=== PATIENT | male | born 1985 | race Caucasian/White ===

== ENCOUNTER 2022-08-14 14:25 | Outpatient (CLI) | payer OTHER, SELFPAY ==
[2022-08-14 16:14] LABS: Transferrin 282 mg/dL (206-381)
[2022-08-14 17:13] LABS: Iron 60 ug/dL (49-181); Percent Iron Saturation 15 % (20-50)
[2022-08-14 17:14] LABS: Alanine Aminotransferase 206 U/L (6-50); Albumin Level 3.9 g/dL (3.5-5.1); Alkaline Phosphatase 120 U/L (38-126); Anion Gap 10 mmol/L (8-16); Aspartate Amino Transferase 187 U/L (17-59); Bilirubin Indirect 0.6 mg/dL (0-1.1); Blood Urea Nitrogen 14 mg/dL (9-20); Calcium 8.9 mg/dL (8.4-10.2); Carbon Dioxide 23 mmol/L (22-30); Chloride 102 mmol/L (98-107); Estimated Glomerular Filt Rate > 60; Glucose 103 mg/dL (65-110); Potassium 5.3 mmol/L (3.4-5.0); Sodium 135 mmol/L (137-145)
== END 2022-08-14 14:26 | disposition home or self-care (01) ==
LOC: ANHLAB 14:28
PROVIDERS: Visit Provider Internal Medicine Gastroenterology
DX: B19.20 Unspecified viral hepatitis C without hepatic coma (principal)
CPT/HCPCS: 36415; 80053; 82248; 82728; 83540; 83550; 84466

== ENCOUNTER 2022-10-26 14:16 | Outpatient (CLI) | payer OTHER, SELFPAY ==
[2022-10-26 15:26] LABS: Basophils Percent Auto 0.6 % (0.2-1.2); Eosinophils Absolute Auto 0.2 K/mm3 (0-0.3); Eosinophils Percent Auto 2.7 % (0-4.4); Hematocrit 38.5 % (42.0-52.0); Hemoglobin 11.8 g/dL (14.0-18.0); Immature Granulocyte Absolute 0.02 K/mm3 (0.00-0.031); Immature Granulocyte Percent A 0.3 % (0-0.5); Lymphocytes Absolute Auto 1.25 K/mm3 (0.9-3.2); Lymphocytes Percent Auto 18.1 % (18.3-44.2); Mean Corpuscular HGB Conc 30.6 g/dl (32-36); Mean Corpuscular Hemoglobin 25.9 pg (26-34); Mean Corpuscular Volume 84.6 fl (80-100); Mean Platelet Volume 9.4 fl (7.4-10.4); Monocytes Absolute Auto 0.5 K/mm3 (0.1-0.6); Monocytes Percent Auto 6.9 % (2.6-8.5); Neutrophils Absolute Auto 4.9 K/mm3 (1.3-6.7); Neutrophils Percent Auto 71.4 % (45.5-73.1); Platelet Count Result 336 k/mm3 (150-375); Red Blood Count 4.55 M/mm3 (4.6-6.20); Red Cell Distribution Width 13.5 % (11.5-14.5); White Blood Count 6.9 K/mm3 (4.5-10.0)
[2022-10-26 15:37] LABS: Prothrombin Time 13.8 Seconds (11.1-14.7)
[2022-10-26 15:38] LABS: Partial Thromboplastin Time 31.6 SECONDS (22.3-36.8)
[2022-10-26 15:41] LABS: Iron 40 ug/dL (49-181)
[2022-10-26 15:43] LABS: Alanine Aminotransferase 186 U/L (6-50); Albumin Level 3.7 g/dL (3.5-5.1); Alkaline Phosphatase 121 U/L (38-126); Anion Gap 2 mmol/L (8-16); Aspartate Amino Transferase 180 U/L (17-59); Bilirubin Indirect 0.2 mg/dL (0-1.1); Bilirubin,Total 0.3 mg/dL (0.2-1.3); Blood Urea Nitrogen 5 mg/dL (9-20); Calcium 8.7 mg/dL (8.4-10.2); Carbon Dioxide 32 mmol/L (22-30); Chloride 103 mmol/L (98-107); Estimated Glomerular Filt Rate > 60; Glucose 108 mg/dL (65-110); Potassium 4.5 mmol/L (3.4-5.0); Sodium 137 mmol/L (137-145)
[2022-10-26 15:51] LABS: Percent Iron Saturation 11 % (20-50)
[2022-10-26 15:53] LABS: Transferrin 215 mg/dL (206-381)
[2022-10-26 16:26] LABS: Hepatitis B Surface Antigen Negative (Negative)
[2022-10-26 16:32] LABS: HAV RESULT Negative (Negative); Hepatitis B Core IgM Result Negative (Negative)
[2022-10-26 16:54] LABS: Hepatitis C Virus Antibody Reactive (Negative)
[2022-11-01 14:12] LABS: Hepatitis C RNA, Quant PCR 5320000 IU/mL
[2022-11-02 08:13] LABS: HCV Genotype, LiPA 1a
[2022-11-06 15:41] LABS: ALT 142 U/L (9-46); Alpha-2-Macroglobulin 283 mg/dL (106-279); Apolipoprotein A1 137 mg/dL (94-176); Fibrosis Score 0.32; Fibrosis Stage F1-F2; GGT 49 U/L (3-90); Haptoglobin 95 mg/dL (43-212); Necroinflammat Act Grade A3; Total Bilirubin 0.3 mg/dL (0.2-1.2)
== END 2022-10-26 14:17 | disposition home or self-care (01) ==
PROVIDERS: Visit Provider Internal Medicine Gastroenterology
DX: B19.20 Unspecified viral hepatitis C without hepatic coma (principal)
CPT/HCPCS: 36415; 80053; 80074; 81596; 82728; 83540; 83550; 84466; 85025; 85610; 85730; 86803; 87522

== ENCOUNTER 2023-06-23 17:27 | Observation (INO) | payer OTHER, SELFPAY ==
[2023-06-23] VITALS (20 sets, daily range): BP systolic 112–165; BP diastolic 70–88; PULSE 60–86; RESP 13–20; TEMP 36.2–36.6; O2SAT 96–100
--- NOTE | ~2023-06-23 | CT_ITS ---
CT scan of the right hand CLINICAL HISTORY: infection, evaluate for abscess TECHNIQUE: Following intravenous administration of 100 cc of Omnipaque 350 contrast material, axial i maging of the right hand was performed. Sagittal and coronal reformatted images were constructed. Dos e reduction technique was used on this scan by utilizing automated exposure control and iterative rec onstruction technique. The dose-length product (DLP) was 566.42 mGy-cm. FINDINGS: Osseous structures are intact. No fracture or dislocation seen. Joint spaces are preserved without degenerative or erosive change. No distinct joint effusion evident. There is marked subcutaneous soft tissue edema hand, especially over the dorsum of the hand. No defin ite mature, peripherally enhancing abscess evident. Soft tissue edema extending circumferentially abo ut the wrist. IMPRESSION: Marked soft tissue edema, especially over the dorsum of the hand and circumferentially about the wris t, without definite abscess. Reviewed, dictated and finalized at [facility]. AL TECHNICIAN IMPRESSION: Marked soft tissue edema, especially over the dorsum of the hand and circumfere ntially about the wrist, without definite abscess.
--- NOTE | ~2023-06-23 | US_ITS ---
EXAMINATION: US renal BI DATE: 06/24/2023 15:56 INDICATION: Acute kidney injury. TECHNIQUE: Multiple ultrasound grayscale images of the kidneys were obtained. COMPARISON: CT abdomen 03/22/2008 FINDINGS: The right kidney measures 10.4 x 5.3 x 5.8 cm. The left kidney measures 12.6 x 5.3 x 5.4 cm. The kidn eys demonstrate normal parenchymal echogenicity. There is no hydronephrosis. The bladder is normal. IMPRESSION: 1. Normal kidneys. No hydronephrosis. Reviewed, dictated and finalized at location [facility]. [facility]
--- NOTE | 2023-06-23 18:11 | ED.SKABFB ---
HPI - Skin/Abscess/Foreign Bdy General Chief complaint: Skin/Abscess/Foreign Body Stated complaint: Right hand swelling Time Seen by Provider: 06/23/23 17:56 History of Present Illness HPI narrative: Patient is a 38-year-old male presenting with right hand swelling. States that he is an IV drug user and he recently used a dirty needle in his right hand. He has had right hand and arm swelling for the last few days. He went to urgent care 2 days ago and was started on clindamycin. States that the swelling has actually gone down a little today but his hand is still very swollen and painful. No fevers, nausea vomiting, or other systemic symptoms. Has widespread chronic sores related to prior IV drug use. Related Data Home Medications Medication Instructions Recorded Confirmed gabapentin 600 mg tablet 600 mg PO TID 06/23/23 06/23/23 methadone 40 mg soluble tablet 90 mg PO DAILY 06/23/23 06/23/23 Allergies Allergy/AdvReac Type Severity Reaction Status Date / Time sulfamethoxazole Allergy Mild Swelling Verified 06/23/23 17:51 trimethoprim Allergy Mild Swelling Verified 06/23/23 17:51 Review of Systems Review of Systems: All systems reviewed & are unremarkable except as noted in HPI and below PMFSH Past Medical History Medical History Hepatitis C Intravenous drug abuse Fentanyl Tobacco use Surgical History Surgical History (Updated 06/23/23 @ 23:19 by Zaria Dunbar PA-C) History of appendectomy Family History Family History Sibling Family history of premature coronary heart disease Mother Hypertension Grandparent Asthma Father Family history of chronic obstructive pulmonary disease Other Cerebrovascular accident Family history of cardiovascular disease Social History Social History (Updated 06/23/23 @ 23:20 by Zaria Dunbar PA-C) Social History: Surrogate medical decision maker: Winifred Lopez, mother. Code status: Full code. Smoking packs per day: 1 Smoking cigarettes per day: 20.0 Years smoked: 20 Smoking pack-years: 20.00 Smoking status: Heavy tobacco smoker Tobacco type: cigarettes Second hand tobacco smoke exposure: Yes Alcohol intake: never Substance use: current Substance use type: IV drugs Other substance usage details: Fentanyl Last use: 06/21/2023 Do You Feel Safe in your Home?: Yes Lack of Transportation: No Lack of Food: Never True Current Housing: I Have Housing Concerned About Future Housing: No Difficulty Paying Gas/Electric Bills: No Difficulty Paying for Meds: No Currently Unemployed: No Education: High School Diploma/GED Difficulty w/ Childcare or Family Care: No Spiritual care concerns: No Exam Narrative: GENERAL: Nontoxic, no acute distress, pleasant and cooperative HEAD: Normocephalic, atraumatic. EYES: PERRLA and EOMI. ENT: Grossly unremarkable NECK: Supple. CHEST: Clear to auscultation. No respiratory distress. HEART: Regular rate and rhythm ABDOMEN: Soft, nontender, nondistended EXTREMITIES: R hand is swollen and red, mildly tender with palpation, redness extends up forearm stopping before elbow; numerous chronic appearing sores on both arms and legs from prior sites of injection; radial pulses 2+, brisk cap refill SKIN: Warm, dry, as above NEURO: No focal deficits. Alert and oriented x3. PSYCH: Normal mood and affect. Course Vital Signs Vital signs: Vital Signs Temperature 97.8 F 06/23/23 17:31 Pulse Rate 82 06/23/23 17:31 Respiratory Rate 18 06/23/23 17:31 Blood Pressure 165/84 H 06/23/23 17:31 Pulse Oximetry 100 06/23/23 17:31 Oxygen Delivery Room Air 06/23/23 17:31 Temperature 97.3 F L 06/24/23 14:00 Pulse Rate 77 06/24/23 14:00 Respiratory Rate 18 06/24/23 14:00 Blood Pressure 116/89 06/24/23 14:00 Pulse Oximetry 90 06/24/23 14:00 Oxygen Delivery Room Air 06/24/23 10:42
[2023-06-23 18:55] LABS: Basophils Percent Auto 0.2 % (0.2-1.2); Eosinophils Percent Auto 0.2 % (0-4.4); Hematocrit 34.1 % (42.0-52.0); Hemoglobin 10.7 g/dL (14.0-18.0); Immature Granulocyte Absolute 0.08 K/mm3 (0.00-0.031); Immature Granulocyte Percent A 0.6 % (0-0.5); Lymphocytes Absolute Auto 1.43 K/mm3 (0.9-3.2); Lymphocytes Percent Auto 10.5 % (18.3-44.2); Mean Corpuscular HGB Conc 31.4 g/dl (32-36); Mean Corpuscular Hemoglobin 25.1 pg (26-34); Mean Corpuscular Volume 79.9 fl (80-100); Mean Platelet Volume 9.6 fl (7.4-10.4); Monocytes Absolute Auto 0.7 K/mm3 (0.1-0.6); Monocytes Percent Auto 5.3 % (2.6-8.5); Neutrophils Absolute Auto 11.3 K/mm3 (1.3-6.7); Neutrophils Percent Auto 83.2 % (45.5-73.1); Platelet Count Result 329 k/mm3 (150-375); Red Blood Count 4.27 M/mm3 (4.6-6.20); Red Cell Distribution Width 14.1 % (11.5-14.5); White Blood Count 13.6 K/mm3 (4.5-10.0)
[2023-06-23] MEDS: KETOROLAC 30 MG/ML VIAL (*BKC) IV PUSH (19:05)
[2023-06-23] MEDS: HYDROmorphone HCL INJ (*CRX) 1 MG/ML SYR IV PUSH ×2 (19:05→23:16)
[2023-06-23 19:09] LABS: Lactic Acid Reflex 1.3 mmol/L (0.7-2.0)
[2023-06-23 19:15] LABS: Alanine Aminotransferase 124 U/L (6-50); Albumin Level 3.6 g/dL (3.5-5.1); Alkaline Phosphatase 131 U/L (38-126); Anion Gap 6 mmol/L (8-16); Aspartate Amino Transferase 103 U/L (17-59); Bilirubin,Total 0.4 mg/dL (0.2-1.3); Blood Urea Nitrogen 42 mg/dL (9-20); Calcium 8.9 mg/dL (8.4-10.2); Carbon Dioxide 29 mmol/L (22-30); Chloride 97 mmol/L (98-107); Estimated CRCL calculation 36 ml/min; Estimated Glomerular Filt Rate 30; Glucose 93 mg/dL (65-110); Potassium 3.8 mmol/L (3.4-5.0); Sodium 132 mmol/L (137-145)
[2023-06-23 19:43] LABS: Erythrocyte Sedimentation Rate 81 mm/hr (0-20)
[2023-06-23] MEDS: SODIUM CHLORIDE 0.9% IV 1,000 ML 999 ML IV CONT ×3 (19:52→21:18)
[2023-06-23] MEDS: VANCOMYCIN 1,250 MG/NS 250 ML 1,250 MG/250 ML BAG 166.67 MG IVPB (19:58)
[2023-06-23 20:06] LABS: CRP 17.4 mg/dL (<1.0)
[2023-06-23 21:04] LABS: Creatine Kinase 71 U/L (55-170)
--- NOTE | 2023-06-23 23:02 | PM.IMHP ---
H&P: HPI History of Present Illness Date/Time: 06/23/23 21:30 Chief Complaint: Right arm pain and swelling. Narrative: This is a pleasant 38-year-old male smoker with hepatitis C and IV fentanyl abuse who presented to the emergency department via private vehicle for evaluation of right arm pain and swelling. The patient provides the following history. He injected intravenously and skin pops and he reports several, chronic ulcerated wounds on both his upper and lower extremities. Three days ago he reused 1 of his needles and within about a day and half he noticed redness and swelling developing at the site. He was seen at urgent care where he was prescribed clindamycin and despite being compliant with the antibiotics the area has continued to progress quite significantly. He describes a tight, throbbing pain in the forearm and down into the hand. He has mild tingling in his fingertips but his sensation and dexterity are intact. He reports sweats and nausea. No known fever. Denies known history of MRSA or other multidrug resistant organisms. He has not noticed a change in urine output. No known history of hypertension, anemia, or kidney disease. He takes 1 ibuprofen a day, never more. He has been eating okay, admits he does not drink as much water as he probably should. He has not noticed a decrease in urine output. Of note, the patient reports that he is on methadone, 90 mg daily. In the ED: He was afebrile on arrival. Vital signs have been stable. Labs were significant for a WBC count 13.6, hemoglobin 10.7, MCV 79.9, ESR 81, sodium 132, chloride 97, BUN 42, creatinine 2.40, AST 103, ALT 124, alkaline phosphatase 131, total CK 71, CRP 17.4. CT of the hand showed marked soft tissue edema especially over the dorsum of the hand and circumferentially about the wrist without definite abscess. Ultrasound of the forearm was done at bedside by attending ED physician, Dr. Chun, and he did not see any evidence of abscess or gas. In fact on repeat exam the patient's arm looked less swollen and less red compared to earlier examination. Review of Systems Review of Systems: Twelve systems were reviewed and are negative except for as per HPI. [facility] Past Medical History Medical History Hepatitis C Intravenous drug abuse Fentanyl Tobacco use Surgical History Surgical History (Updated 06/23/23 @ 23:19 by Zaria Dunbar PA-C) History of appendectomy Family History Family History Sibling Family history of premature coronary heart disease Mother Hypertension Grandparent Asthma Father Family history of chronic obstructive pulmonary disease Other Cerebrovascular accident Family history of cardiovascular disease Social History Social History (Updated 06/23/23 @ 23:20 by Zaria Dunbar PA-C) Social History: Surrogate medical decision maker: Winifred Lopez, mother. Code status: Full code. Smoking packs per day: 1 Smoking cigarettes per day: 20.0 Years smoked: 20 Smoking pack-years: 20.00 Smoking status: Heavy tobacco smoker Tobacco type: cigarettes Second hand tobacco smoke exposure: Yes Alcohol intake: never Substance use: current Substance use type: IV drugs Other substance usage details: Fentanyl Last use: 06/21/2023 Do You Feel Safe in your Home?: Yes Lack of Transportation: No Lack of Food: Never True Current Housing: I Have Housing Concerned About Future Housing: No Difficulty Paying Gas/Electric Bills: No Difficulty Paying for Meds: No Currently Unemployed: No Education: High School Diploma/GED Difficulty w/ Childcare or Family Care: No Spiritual care concerns: No Meds Home Medications and Allergies Home Medications Medication Instructions Recorded Confirmed Type gabapentin 600 mg tablet 600 mg PO TID 06/23/23 06/23/23 History methadone 40 mg soluble tablet 90 mg PO DAILY 06/23/23 06/23/23 History
--- NOTE | 2023-06-23 23:05 | ADMGEN ---
This patient, Schuyler Lopez, was admitted to Medical Room 342-01. Patient/family oriented to hospital policies and general routines including ID bracelet, bed and alarms, visiting hours, pain management, procedures, bathroom and other care routines, personal items, smoking policy, room service/diet, and visiting hours. Information on how to activate the Rapid Response Team has been discussed. Patient/Family are encouraged to report perceived risks to care and to ask questions if they do not understand what they are told or what they should do.
[2023-06-23] MEDS: PIPERACILLN/TAZ 3.375GM/NS50ML 3.375 GM/50 ML BAG IVPB (23:13)
[2023-06-24 00:18] LABS: Anion Gap 6 mmol/L (8-16); Blood Urea Nitrogen 38 mg/dL (9-20); Calcium 8.2 mg/dL (8.4-10.2); Carbon Dioxide 28 mmol/L (22-30); Chloride 101 mmol/L (98-107); Creatine Kinase 55 U/L (55-170); Estimated CRCL calculation 39 ml/min; Estimated Glomerular Filt Rate 33; Glucose 95 mg/dL (65-110); Iron 18 ug/dL (49-181); Potassium 3.6 mmol/L (3.4-5.0); Sodium 135 mmol/L (137-145)
[2023-06-24 00:29] LABS: Percent Iron Saturation 7 % (20-50)
[2023-06-24] MEDS: LACTATED RINGERS 1,000 ML 100 ML IV CONT ×2 (00:53→13:04)
[2023-06-24 00:57] LABS: Appearance Urine Cloudy (Clear); Bacteria Urine None Seen /hpf; Bilirubin Urine Negative (Negative); Blood Urine 3+ (Negative); Color Urine Yellow (Yellow); Glucose Urine UA Negative (Negative); Ketones Urine Negative (Negative); Leukocyte Esterase Ur Negative LEU/UL (Negative); Nitrate Urine Negative (Negative); Protein Urine 2+ mg/dL (Negative); RBC Urine >100 /hpf (0-2); Specific Grav Ur 1.022 (1.001-1.035); Squamous Epithelial Cell Urine Occasional /hpf (Few); Urobilinogen Urine 0.2 mg/dL (<2.0); pH Urine 5.5 (5.0-9.0)
[2023-06-24 01:12] LABS: Add Urine Microscopic? YES
[2023-06-24 01:28] LABS: Folic Acid > 20.0 ng/mL (2.76->20)
[2023-06-24 02:36] LABS: Hepatitis B Surface Antigen Negative (Negative)
[2023-06-24 02:40] LABS: HAV RESULT Negative (Negative); Hepatitis B Core IgM Result Negative (Negative)
[2023-06-24 02:53] LABS: Hepatitis C Virus Antibody Reactive (Negative)
[2023-06-24] MEDS: PIPERACILLIN/TAZ 2.25G/NS 50ML 2.25 GM/50 ML BAG IVPB (05:42)
[2023-06-24] MEDS: MORPHINE SULFATE (*CRX) 2 MG/ML INJ 4 MG IV PUSH ×2 (05:42→10:57)
[2023-06-24] MEDS: LORazepam INJ (*CRX) 2 MG/ML VIAL 1 MG IV PUSH ×2 (05:51→13:04)
[2023-06-24 05:54] LABS: Hematocrit 34.2 % (42.0-52.0); Hemoglobin 10.3 g/dL (14.0-18.0); Mean Corpuscular HGB Conc 30.1 g/dl (32-36); Mean Corpuscular Hemoglobin 25.1 pg (26-34); Mean Corpuscular Volume 83.2 fl (80-100); Mean Platelet Volume 9.5 fl (7.4-10.4); Platelet Count Result 322 k/mm3 (150-375); Red Blood Count 4.11 M/mm3 (4.6-6.20); Red Cell Distribution Width 14.1 % (11.5-14.5); White Blood Count 11.3 K/mm3 (4.5-10.0)
[2023-06-24 06:00] VITALS: BP 153/96; PULSE 74; RESP 21; TEMP 37.3; O2SAT 100; BMI 27.5
[2023-06-24 06:04] LABS: Alanine Aminotransferase 103 U/L (6-50); Albumin Level 2.9 g/dL (3.5-5.1); Alkaline Phosphatase 118 U/L (38-126); Anion Gap 6 mmol/L (8-16); Aspartate Amino Transferase 94 U/L (17-59); Bilirubin,Total 0.3 mg/dL (0.2-1.3); Blood Urea Nitrogen 33 mg/dL (9-20); Calcium 8.2 mg/dL (8.4-10.2); Carbon Dioxide 25 mmol/L (22-30); Chloride 103 mmol/L (98-107); Estimated CRCL calculation 45 ml/min; Estimated Glomerular Filt Rate 39; Glucose 91 mg/dL (65-110); Potassium 3.7 mmol/L (3.4-5.0); Sodium 134 mmol/L (137-145)
[2023-06-24] MEDS: GABAPENTIN 300 MG CAPSULE 600 MG PO ×2 (08:35→13:03)
--- NOTE | 2023-06-24 09:01 | PM.IMPN ---
Progress Note: A&P Assessment and Plan (1) Cellulitis of right arm: Code(s): L03.113 - Cellulitis of right upper limb Status: Acute (2) Acute kidney injury: Code(s): N17.9 - Acute kidney failure, unspecified Status: Acute (3) Multiple wounds of skin: Code(s): T14.8XXA - Other injury of unspecified body region, initial encounter Status: Acute (4) Microcytic anemia: Code(s): D50.9 - Iron deficiency anemia, unspecified Status: Acute (5) Intravenous drug abuse: Code(s): F19.10 - Other psychoactive substance abuse, uncomplicated Status: Acute (6) Hepatitis C: Code(s): B19.20 - Unspecified viral hepatitis C without hepatic coma Status: Acute (7) Tobacco use: Code(s): Z72.0 - Tobacco use Status: Acute Plan The patient presented to the emergency department for evaluation of right arm pain and swelling after injecting IV drugs several days ago. He has significant swelling and cellulitis in that right arm with lymphangitic streaking and lymphadenopathy in the right axilla. A CT scan of the hand was done in the ED without definitive abscess however the infection extends well beyond the hand and wrist. BEDSIDE ULTRASOUND IN THE ED SHOWED cobblestoning indicative of edema and cellulitis. No definitive abscess or gas was noted. The patient encouraged to elevate the affected extremity frequently. CONTINUE TO measure the extremity each shift and do neurovascular checks. Analgesics available as needed. Continue broad-spectrum antibiotics including vancomycin and Zosyn for now. Blood cultures have been obtained and are pending. Regarding the acute kidney injury, CREATININE ON ADMISSION WAS 2.4 BASELINE CREATININE BACK IN 10/2022 WAS 0.5. CONTINUES TO IMPROVE WITH IV HYDRATION DOWN TO 1.9 THIS A.M.. WILL AVOID COMBINATION OF VANCOMYCIN AND ZOSYN IN THIS SETTING AND WILL SWITCH ZOSYN TO CEFTRIAXONE. He has a mild microcytic anemia thus will check iron studies as well as B12 and folates. TOBACCO ABUSE Wound nurse consulted for recommendations regarding his numerous wounds. DVT PROPHYLAXIS START LOVENOX Subjective Date/time seen: 06/24/23 09:01 Interval history: Swelling is improving he states. Remains afebrile. He states he will be going home tomorrow Review of Systems Review of Systems: All systems reviewed & are unremarkable except as noted in HPI and below Exam Narrative: General: Nontoxic-appearing male in the semi-Garzon position in bed. HEENT: Normocephalic, atraumatic. PERRL, EOMI. Sclera anicteric. Tacky mucous membranes. Neck: Supple. Respiratory: Lungs are clear to auscultation bilaterally. Cardiovascular: Regular rate and rhythm with S1-S2. No obvious murmur. Gastrointestinal: Abdomen is soft, nontender, and nondistended with positive bowel sounds. Skin: Warm and dry. Multiple tattoos. Several scars and ulcerations in various stages of healing on all of the extremities. The right upper extremity from the dorsum of the hand to the elbow are markedly edematous, erythematous, warm, and tender to touch. Some erythema and mild swelling extends above the elbow. There is tender lymphadenopathy in the right axilla. Scattered ulcers noted on the forearm, some with black eschars. No obvious area of fluctuance or crepitus. Capillary refill is normal. Sensation is intact in the fingers. He is unable to make a tight fist due to the swelling. Extremities: No cyanosis or clubbing. Edema as above. Peripheral pulses intact. Neurological: Alert. Cranial nerves 2-12 are grossly intact. No gross focal deficits to casual conversation. Psychiatric: Pleasant and cooperative with appropriate mood and affect. Objective Data Vital Signs Vital Signs: Vital Signs - 24 hr 06/23/23 17:31 06/23/23 17:52 06/23/23 19:54 Temperature 97.8 F Pulse Rate 82 80 79 Respiratory Rate 18 20 17 Blood Pressure 165/84 H 112/88 120/78 Pulse Oximetry 100 100 96 Oxygen
[2023-06-24 10:42] VITALS: O2SAT 100
[2023-06-24] MEDS: cefTRIAXone 2 GM/NS 100 ML 2 GM/100 ML BAG IVPB (10:44)
[2023-06-24] MEDS: ENOXAPARIN 40 MG/0.4 ML SYRINGE SUB-Q (10:44)
[2023-06-24] MEDS: HYDROcodone/acetaminophen (*CRX) 5-325 MG TABLET 1 TAB PO (13:03)
[2023-06-24 14:00] VITALS: BP 116/89; PULSE 77; RESP 18; TEMP 36.3; O2SAT 90
--- NOTE | 2023-06-24 19:26 | PC.NURSE ---
Around 1800, pt expressed concerns that he wanted to leave AMA. Spoke with Dr. Padron about pt seeming weak and unable to dial his mother's number, needed assistance by this RN. Telephone orders for 0.5 mg ativan received to try to calm pt to stay for longer in order to receive IV fluids and antibiotics. Pt refusing ativan and demanding methadone in order to stay. Spoke with pharmacy about getting a one time dose of methadone now and to continue tomorrow afternoon with subsequent doses. Orders obtained for methadone. Pt states that he is going to leave anyway and would like to sign AMA papers. Pt signed AMA paperwork and educated about the risks of leaving AMA without receiving the appropriate amount of antibiotics for his infection. Pt states he understands the risks. Pt's mother arrived around 1900 and proceeded to have a verbal altercation with the pt. Security called to assist. Pt's mother left shortly after, and the pt left escorted by security.
--- NOTE | 2023-06-25 16:25 | PM.DS ---
DS: Admitting Diagnosis Discharge Date 06/24/23 Admitting Diagnosis Upper extremity cellulitis DS: Discharge Diagnosis Discharge Diagnosis (1) Cellulitis of right arm: Code(s): L03.113 - Cellulitis of right upper limb Status: Acute (2) Acute kidney injury: Code(s): N17.9 - Acute kidney failure, unspecified Status: Acute (3) Multiple wounds of skin: Code(s): T14.8XXA - Other injury of unspecified body region, initial encounter Status: Acute (4) Microcytic anemia: Code(s): D50.9 - Iron deficiency anemia, unspecified Status: Acute (5) Intravenous drug abuse: Code(s): F19.10 - Other psychoactive substance abuse, uncomplicated Status: Acute (6) Hepatitis C: Code(s): B19.20 - Unspecified viral hepatitis C without hepatic coma Status: Acute (7) Tobacco use: Code(s): Z72.0 - Tobacco use Status: Acute DS: Summary Hospital Course Hospital Course: The patient presented to the emergency department for evaluation of right arm pain and swelling after injecting IV drugs several days ago.? He has significant swelling and cellulitis in that right arm with lymphangitic streaking and lymphadenopathy in the right axilla. A CT scan of the hand was done in the ED without definitive abscess however the infection extends well beyond the hand and wrist.? BEDSIDE ULTRASOUND IN THE ED SHOWED cobblestoning indicative of edema and cellulitis. No definitive abscess or gas was noted. The patient encouraged to elevate the affected extremity frequently.? CONTINUE TO measure the extremity each shift and do neurovascular checks. Analgesics available as needed. Continue broad-spectrum antibiotics including vancomycin and Zosyn for now. Blood cultures have been obtained and remained negative. CREATININE ON ADMISSION WAS 2.4 BASELINE CREATININE BACK IN 10/2022 WAS 0.5.? CONTINUES TO IMPROVE WITH IV HYDRATION DOWN TO 1.9 THIS A.M..? To aVOID COMBINATION OF VANCOMYCIN AND ZOSYN Zosyn was switched TO CEFTRIAXONE.? He has a mild microcytic anemia thus will check iron studies as well as B12 and folates.? TOBACCO ABUSE ?Wound nurse consulted for recommendations regarding his numerous wounds. DVT PROPHYLAXIS START LOVENOX Opiate use disorder on methadone Subsequently by the end of the day he refused to get continue treatment in the hospital and left against medical advice Time Spent with Patient Time attestation: Total time spent providing and/or coordinating discharge services: With 30 minutes Exam Narrative: General: Nontoxic-appearing male in the semi-Garzon position in bed. HEENT: Normocephalic, atraumatic. PERRL, EOMI. Sclera anicteric. Tacky mucous membranes. Neck: Supple. Respiratory: Lungs are clear to auscultation bilaterally. Cardiovascular: Regular rate and rhythm with S1-S2. No obvious murmur. Gastrointestinal: Abdomen is soft, nontender, and nondistended with positive bowel sounds. Skin: Warm and dry. Multiple tattoos. Several scars and ulcerations in various stages of healing on all of the extremities. The right upper extremity from the dorsum of the hand to the elbow are markedly edematous, erythematous, warm, and tender to touch. Some erythema and mild swelling extends above the elbow. There is tender lymphadenopathy in the right axilla. Scattered ulcers noted on the forearm, some with black eschars. No obvious area of fluctuance or crepitus. Capillary refill is normal. Sensation is intact in the fingers. He is unable to make a tight fist due to the swelling. Extremities: No cyanosis or clubbing. Edema as above. Peripheral pulses intact. Neurological: Alert. Cranial nerves 2-12 are grossly intact. No gross focal deficits to casual conversation. Psychiatric: Pleasant and cooperative with appropriate mood and affect. DS: Data Data Completed and Pending Labs on day of discharge: Preliminary micro results at discharge 06/23/23 18:45 Blood Culture - Preliminar
[2023-06-26 16:47] LABS: Hepatitis C RNA, Quant PCR 346000 IU/mL
== END 2023-06-24 19:20 | disposition left against medical advice (07) ==
LOC: ANHED 18:55 → ANH3MED 06-24 05:36
PROVIDERS: Physician Assistant; Admitting Provider Internal Medicine; Emergency Provider Emergency Medicine; PCP Internal Medicine; Visit Provider Internal Medicine
DX: L03.113 Cellulitis of right upper limb (principal); N17.9 Acute kidney failure, unspecified; D50.9 Iron deficiency anemia, unspecified; T14.8XXA Other injury of unspecified body region, initial encounter; X58.XXXA Exposure to other specified factors, initial encounter; F19.10 Other psychoactive substance abuse, uncomplicated; B19.20 Unspecified viral hepatitis C without hepatic coma; F17.210 Nicotine dependence, cigarettes, uncomplicated; Z79.891 Long term (current) use of opiate analgesic; Z79.899 Other long term (current) drug therapy
CPT/HCPCS: 36415; 73201; 76775; 80048; 80053; 80074; 81001; 82550; 82607; 82728; 82746; 83540; 83550; 83605; 84443; 85025; 85027; 85652; 86140; 87040; 87086; 87522; 96361; 96365; 96367; 96372; 96375; 96376; 99285; A9270; G0378; G0379; J0696; J1170; J1650; J1885; J2060; J2270; J2543; J3370; J7030; J7120; Q9967